=== PATIENT | male | born 1975 | race African-American/Black ===

== ENCOUNTER 2024-06-21 15:15 | Inpatient (IN) | payer OTHER ==
[2024-06-21 15:35] VITALS: BMI 20.6
[2024-06-21] MEDS ORDERED: IBUPROFEN 600 MG TABLET (FP) PO PRN (16:45)
[2024-06-21] MEDS ORDERED: NALOXONE (NARCAN) HCL 4 MG/0.1 ML SPRAY NS PRN (16:45)
[2024-06-21] MEDS ORDERED: IBUPROFEN 400 MG TABLET (FP) PO PRN (16:45)
[2024-06-21] MEDS ORDERED: BENZONATATE 200 MG CAPSULE PO PRN (16:45)
[2024-06-21] MEDS ORDERED: LOPERAMIDE HCL 2 MG CAPSULE PO PRN (16:45)
[2024-06-21] MEDS ORDERED: guaiFENesin 600 MG TABLET.ER (FP) PO PRN (16:45)
[2024-06-21] MEDS ORDERED: NICOTINE POLACRILEX 2 MG GUM BUC PRN (16:45)
[2024-06-21] MEDS ORDERED: TUBERCULIN PPD 5 TU/0.1ML VIAL ID ONE (18:10)
[2024-06-21] MEDS: DOXYCYCLINE HYCLATE 100 MG TABLET PO SCH (18:12)
[2024-06-21] MEDS: CEPHALEXIN MONOHYDRATE 500 MG CAPSULE (UD) PO SCH (18:18)
[2024-06-21 21:08] LABS: URINE APPEARANCE CLEAR; URINE BILIRUBIN NEGATIVE (NEGATIVE); URINE COLOR YELLOW; URINE GLUCOSE (UA) NEGATIVE (NEGATIVE); URINE KETONE NEGATIVE (NEGATIVE); URINE LEUK ESTERASE NEGATIVE (NEGATIVE); URINE NITRITE NEGATIVE (NEGATIVE); URINE PROTEIN NEGATIVE (NEGATIVE); URINE UROBILINOGEN 0.2 mg/dL (0.2-1.0)
[2024-06-21] MEDS: MELATONIN 5 MG TABLETS PO SCH (21:13)
[2024-06-21] MEDS: THIAMINE 100 MG TABLET PO SCH (21:13)
[2024-06-21] MEDS: ATORVASTATIN CA 40 MG TABLET (FP) PO SCH (21:13)
[2024-06-21] MEDS ORDERED: DOXYCYCLINE HYCLATE 100 MG TABLET PO SCH (22:00)
[2024-06-21] MEDS: MAG HYDROX/AL HYDROX/SIMETH 30 ML UNIT-DOSE CUP PO PRN (22:08)
[2024-06-22] MEDS ORDERED: methaDONE HCL 40 MG DISPERSABLE TABLET PO SCH (06:00)
[2024-06-22] MEDS: hydrOXYzine PAMOATE 25 MG CAPSULE (FP) PO PRN (06:39)
[2024-06-22] MEDS: PRENATAL VITAMINS W/ FOLIC ACID TABLET (FP) PO SCH (10:50)
[2024-06-22] MEDS: CLOPIDOGREL BISULFATE 75 MG TABLET (FP) PO SCH (10:50)
[2024-06-22] MEDS: ASPIRIN COATED 81 MG TABLET.EC PO SCH (10:50)
[2024-06-22] MEDS ORDERED: NICOTINE POLACRILEX 2 MG LOZENGE BC PRN (11:09)
[2024-06-22] MEDS ORDERED: DICYCLOMINE HCL 10 MG CAPSULE PO PRN (11:09)
[2024-06-22] MEDS ORDERED: METHOCARBAMOL 500 MG TABLET PO PRN (11:09)
[2024-06-22] MEDS: ONDANSETRON *ODT* 4 MG TABLET SL PRN (11:21)
[2024-06-22 11:36] LABS: HEMATOCRIT 47.2 % (35.4-49); HEMOGLOBIN 15.7 GM/dL (11.7-16.9); MCH 31.7 pg (25.7-33.7); MCHC 33.2 g/dl (32.0-35.9); MEAN CELL VOLUME 95.4 fl (80-96); MEAN PLT VOLUME 8.7 fl (7.5-11.1); PLATELET COUNT 299 10^3/uL (134-434); RBC 4.94 M/mm3 (4.00-5.60); RDW 14.5 % (11.9-15.9); WHITE BLOOD COUNT 7.9 K/mm3 (4.0-10.0)
[2024-06-22 13:02] LABS: CHLORIDE 99 mmol/L (98-107); POTASSIUM 5.5 mmol/L (3.5-5.1); SODIUM 138 mmol/L (136-145)
[2024-06-22 13:06] LABS: ALBUMIN 3.5 g/dl (3.4-5.0); CALCIUM 9.5 mg/dL (8.5-10.1)
[2024-06-22 13:07] LABS: ANION GAP 6 mmol/L (4-13); BLOOD UREA NITROGEN 10.1 mg/dL (7-18); CO2 33 mmol/L (21-32); GLUCOSE,RANDOM 102 mg/dL (74-106)
[2024-06-22 13:10] LABS: CREATININE 0.9 mg/dL (0.55-1.3); SGOT/AST 53 U/L (15-37); SGPT/ALT 56 U/L (13-61)
[2024-06-22 13:11] LABS: BILIRUBIN,TOTAL 0.6 mg/dL (0.2-1); TOT PROT 7.1 g/dl (6.4-8.2)
[2024-06-22 13:13] LABS: ALK PHOS 87 U/L (45-117)
[2024-06-22 17:02] LABS: SYPHILIS W/ RPR CONF NON-REACTIVE (NONREACTIVE)
[2024-06-22 17:30] LABS: HCV DIAGNOSTIC IN-HOUSE W/RFLX NON-REACTIVE (NONREACTIVE)
[2024-06-22] MEDS: SODIUM CHLORIDE 1 GM TABLET PO SCH (21:21)
[2024-06-24] MEDS: ACETAMINOPHEN 325 MG TABLET (FP) PO PRN (23:03)
[2024-06-29] MEDS: BISMUTH SUBSALICYLATE 262 MG/15 ML BTL PO PRN (06:13)
[2024-06-30] MEDS: LIDOCAINE 5% TOPICAL PATCH TP SCH (17:25)
[2024-06-30] MEDS: SODIUM POLYSTYRENE SULFONATE 15 GM/60 ML BOTTLE PO ONE ×2 (17:25→17:30)
[2024-06-30] MEDS: LIDOCAINE PATCH REMOVAL MC SCH (21:13)
[2024-07-01] MEDS: DOCUSATE SODIUM 100 MG CAPSULE (FP) PO PRN (08:39)
[2024-07-01] MEDS: MAGNESIUM HYDROX 2400MG/30ML ORAL SUSPENSION 30 ML CUP PO PRN (13:43)
[2024-07-01] MEDS: MIRTAZAPINE 15 MG TABLET (FP) PO SCH (21:28)
[2024-07-03] MEDS: POLYETHYLENE GLYCOL (HEALTHYLAX) 3350 17 GM PACKET PO PRN (15:28)
[2024-07-07] MEDS: CEPHALEXIN MONOHYDRATE 500 MG CAPSULE (UD) PO SCH (12:27)
[2024-07-07] MEDS ORDERED: AMOX TR/POT CLAV 500MG/125MG TABLETS (FP) PO SCH (17:30)
[2024-07-09] MEDS ORDERED: OXYMETAZOLINE 0.05% NASAL SOLUTION 15 ML BOTTLE NS PRN (09:46)
[2024-07-09] MEDS ORDERED: guaiFENesin 600 MG TABLET.ER (FP) PO PRN (09:46)
[2024-07-09] MEDS: CHLORHEXIDINE GLUCONATE 0.12% 15ML CUP MM SCH (11:44)
[2024-07-09] MEDS: guaiFENesin 200 MG/10 ML 10 ML UNIT-DOSE CUPS PO PRN (15:08)
[2024-07-09] MEDS: BENZOCAINE/MENTHOL (CHLORASEPTIC ) LOZENGE MM PRN (21:40)
[2024-07-11] MEDS ORDERED: ATORVASTATIN CA 20 MG TABLET (FP) ONE (20:23)
[2024-07-12] MEDS: TAMSULOSIN HCL 0.4 MG CAP PO SCH (13:49)
[2024-07-16] MEDS: BENZONATATE 200 MG CAPSULE PO PRN (09:28)
[2024-07-19 07:11] VITALS: BP 113/75; PULSE 87; RESP 17; TEMP 97.8
== END 2024-07-19 09:27 | disposition home or self-care (01) | DRG 772 ==
LOC: YASAS 15:15 → Y3W 17:43
PROVIDERS: ADMIT Psychiatry & Neurology Pain Medicine; ATTEND Psychiatry & Neurology Pain Medicine
PROC: HZ42ZZZ Group Counseling for Substance Abuse Treatment, Cognitive-Behavioral (ICD-10-PCS; principal; 2024-06-21)
DX: F11.20 Opioid dependence, uncomplicated (principal); F17.210 Nicotine dependence, cigarettes, uncomplicated; U07.1 COVID-19; E87.5 Hyperkalemia; G47.00 Insomnia, unspecified; H00.012 Hordeolum externum right lower eyelid; N39.0 Urinary tract infection, site not specified; B96.89 Other specified bacterial agents as the cause of diseases classified elsewhere; M54.50 Low back pain, unspecified; G89.29 Other chronic pain; Z59.01 Sheltered homelessness; Z86.73 Personal history of transient ischemic attack (TIA), and cerebral infarction without residual deficits; Z88.0 Allergy status to penicillin
CPT/HCPCS: 0241U-QW; 36415; 80053; 80305; 80307; 81003; 84132; 85027; 86780; 86803; 87811; 93005; 93010; Q0162